=== PATIENT | female | born 1960 | race African-American/Black ===

== ENCOUNTER 2020-12-19 06:27 | Emergency (ER) | payer MEDICARE, MEDICAID ==
[~2020-12-19] VITALS: Ht 167.6 cm; Wt 82.0 kg
[2020-12-19] MEDS ORDERED: KETOROLAC 30MG/ML VIAL IV ONE (07:45)
[2020-12-19 08:26] LABS: CHLORIDE 106 mEq/L (98-107)
[2020-12-19 08:30] LABS: PROTHROMBIN TIME 10.4 sec (9.6-11.0)
[2020-12-19 08:34] LABS: EOSINOPHILS % 1.7 % (0.0-5.0); HEMATOCRIT. 38.6 % (36.0-48.0); HEMOGLOBIN. 12.4 g/dL (12.0-16.0); LYMPHOCYTES % 29.9 % (20.0-50.0); MEAN CORPUSCULAR HEMOGLOBIN 26.6 pg (28.0-32.0); MEAN CORPUSCULAR VOLUME 82.9 fL (81.0-99.0); MEAN PLATELET VOLUME 8.9 fl (7.4-10.4); MONOCYTES % 6.1 % (2.0-8.0); NEUTROPHILS % 61.3 % (40.0-76.0); PLATELET 265 x1000/uL (130-400); RED BLOOD CELL COUNT 4.66 mill/uL (4.2-5.4); RED CELL DISTRIBUTION WIDTH 14.2 % (11.6-14.6)
[2020-12-19 08:35] LABS: CLARITY URINE CLEAR (CLEAR); COLOR URINE YELLOW (YELLOW); KETONES URINE NEGATIVE (NEGATIVE); LEUKOCYTE ESTERASE URINE NEGATIVE (NEGATIVE); NITRITE URINE NEGATIVE (NEGATIVE); OCCULT BLOOD URINE NEGATIVE (NEGATIVE); PROTEIN URINE NEGATIVE (NEGATIVE); SPECIFIC GRAVITY URINE 1.023 (1.005-1.030)
[2020-12-19] MEDS ORDERED: TOPUD PO (09:51)
[2020-12-19 10:09] VITALS: BP 127/76
== END 2020-12-19 10:10 | disposition home or self-care (01) ==
LOC: ER 06:27
DX: R10.9 Unspecified abdominal pain (principal); I10 Essential (primary) hypertension
CPT/HCPCS: 36415; 74176; 80053; 81003; 83690; 85025; 85610; 96374; 99284; J1885